=== PATIENT | male | born 1955 | race Caucasian/White ===

== ENCOUNTER → 2021-07-08 03:34 | Outpatient (CLI) | payer MEDICARE, SELFPAY ==
[2021-07-08 19:12] LABS: SARS-CoV-2 RNA PCR Negative
== END ==
PROVIDERS: PCP Family Medicine; Visit Provider Internal Medicine Gastroenterology
DX: Z01.812 Encounter for preprocedural laboratory examination (principal); Z20.822 Contact with and (suspected) exposure to COVID-19
CPT/HCPCS: C9803; U0003; U0005

== ENCOUNTER 2021-07-11 00:37 | Day surgery (SDC) | payer MEDICARE, SELFPAY ==
[2021-06-30 14:10] VITALS: BMI 28.5
[2021-07-11 06:25] VITALS: BMI 28.8
[2021-07-11] MEDS: LACTATED RINGERS 1,000 ML 150 ML IV CONT (06:40)
--- NOTE | 2021-07-11 07:08 | WPDANESEPPF ---
Anes - Initial Pre Proc Eval Procedure: Operation Date: 07/11/21 07:30 Proposed Procedures p Screening Colonoscopy - Chivo Hanks MD Date/Time: 07/11/21 07:08 Surgeon: Chivo Hanks MD Pre Op Diagnosis: neoplasm screening Patient Data Age: 66 Gender: M Height: 1.8 m Weight: 93.7 kg Allergies Allergy/AdvReac Type Severity Reaction Status Date / Time No Known Allergies Allergy Mild Verified 07/11/21 06:22 Home Medications Medication Instructions Recorded Confirmed Type fluticasone propionate 50 2 spray NASAL DAILY #9.9 ml 06/27/19 07/01/21 Rx mcg/actuation nasal spray,suspension syringe (disposable) 3 mL #25 each 01/10/20 05/21/21 Rx aspirin 81 mg tablet,delayed 81 mg PO DAILY 04/18/20 07/01/21 History release melatonin 5 mg capsule 5 mg PO QPM PRN cap 04/19/20 07/01/21 History vitamin E (dl, acetate) 180 mg 450 mg PO DAILY 04/19/20 07/01/21 History (400 unit) capsule pravastatin 40 mg tablet 40 mg PO DAILY #90 tablet 02/15/21 07/01/21 Rx clonazepam 1 mg tablet 1 mg PO DAILY PRN #90 tablet 04/22/21 07/01/21 Rx omega-3s 800 mg-dha 186.67 mg-epa 1 cap PO BID cap 04/22/21 07/01/21 History 560 mg-fish-vit D3 8.33 mcg capsule testosterone cypionate 200 mg/mL 200 mg IM .Every 3 weeks #6 ml 05/03/21 07/01/21 Rx intramuscular oil sildenafil (pulm.hypertension) 20 20 mg PO DAILY PRN #30 tablet 05/24/21 07/01/21 Rx mg tablet Patient hx anesthesia problems: none Family hx anesthesia problems: none Results Review: All pre-operative results and documents have been reviewed as part of the pre-operative evaluation. 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 Carotid bruit (~2016) Cervical spine disease (~2002) C5-6 Chronic fatigue Chronic rhinitis (~2017) Degenerative joint disease of cervical and lumbar spine Encounter for wellness examination Erectile dysfunction Hypercholesterolemia Hyperlipidemia Hyperlipidemia LDL goal <100 Hypogonadism Neck pain Numbness of right hand (~12/10/18) Osteoarthritis, multiple sites Overweight (BMI 25.0-29.9) Plantar fasciitis (~2018) twice-right side Psoriasis, unspecified RLS (restless legs syndrome) Rotator cuff injury Testicular hypofunction Unilateral hearing loss Vitamin B12 deficiency Surgical History Surgical History History of lumbar surgery lumbar disc L2-3 Family History Family History Father Family history of congenital heart disease Family history of arthritis Grandparent Family history of rheumatoid arthritis Family history of malignant neoplasm of cervix Mother Family history of lung cancer Family history of malignant neoplasm of brain Social History Social History Smoking status: Never smoker Second hand tobacco smoke exposure: No Alcohol intake: current Drinks per week: 1 Alcohol use details: consumes beer occasionally Substance use: never Substance use type: does not use Living arrangements: with family Gender identity (if verbalized by the patient): Male Sexual Orientation (if Verbalized by the Patient): Straight or Heterosexual Spiritual care concerns: No Anes - Eval Final PreProcedure Day of Procedure 07/11/21 07:08 Patient weight: overweight Heart: regular rate and rhythm Lungs: clear to auscultation Airway: Mallampati scale class II Neurological: alert and oriented Last oral intake: >/= 8 hours ASA classification: II Emergent: no Anesthetic plan: proceed Anesthesia type and monitoring: general GIVS and standard monitoring Results Review: All pre-operative results and documents have been reviewed as part of the pre-operative evaluation. Informed Consent: The patient
--- NOTE | 2021-07-11 07:29 | WPDGICN ---
Assessment and Plan Assessment and plan (1) Encounter for screening colonoscopy: Code(s): Z12.11 - Encounter for screening for malignant neoplasm of colon Status: Acute Assessment and Plan: Patient presents for screening colonoscopy. Has been 10 years since last exam. Colonoscopy will be performed at this time. (2) Rectal bleeding: Code(s): K62.5 - Hemorrhage of anus and rectum Status: Acute Assessment and Plan: Patient is notice some bright red blood per rectum with wiping. Most suspicious for hemorrhoids. Plan to assess this at time of colonoscopy. High-fiber diet advised. Further recommendations will be discussed at time of endoscopy. GI Consult Note Consult date/time: 07/11/21 07:29 HPI: Taj Short is a 66 year old malePresents for screening colonoscopy. Is been more than 10 years since last exam. Patient reports that he has occasional bright red blood per rectum with wiping. This been more noticeable over last several years. He does have a mild discomfort on the left side of his perianal skin. He has had occasional skin fissures in this area and complains of anal skin tags. He states he does get relief with hemorrhoidal creams. His bowel habits are reported to be normal. Family history is noncontributory. Patient presents today for colonoscopy also to assess for his perianal discomfort. 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 Carotid bruit (~2016) Cervical spine disease (~2002) C5-6 Chronic fatigue Chronic rhinitis (~2017) Degenerative joint disease of cervical and lumbar spine Encounter for wellness examination Erectile dysfunction Hypercholesterolemia Hyperlipidemia Hyperlipidemia LDL goal <100 Hypogonadism Neck pain Numbness of right hand (~12/10/18) Osteoarthritis, multiple sites Overweight (BMI 25.0-29.9) Plantar fasciitis (~2018) twice-right side Psoriasis, unspecified RLS (restless legs syndrome) Rotator cuff injury Testicular hypofunction Unilateral hearing loss Vitamin B12 deficiency Surgical History Surgical History History of lumbar surgery lumbar disc L2-3 Family History Family History Father Family history of congenital heart disease Family history of arthritis Grandparent Family history of rheumatoid arthritis Family history of malignant neoplasm of cervix Mother Family history of lung cancer Family history of malignant neoplasm of brain Social History Social History Smoking status: Never smoker Second hand tobacco smoke exposure: No Alcohol intake: current Drinks per week: 1 Alcohol use details: consumes beer occasionally Substance use: never Substance use type: does not use Living arrangements: with family Gender identity (if verbalized by the patient): Male Sexual Orientation (if Verbalized by the Patient): Straight or Heterosexual Spiritual care concerns: No Meds Home Medications and Allergies Home Medications Medication Instructions Recorded Confirmed Type fluticasone propionate 50 2 spray NASAL DAILY #9.9 ml 06/27/19 07/01/21 Rx mcg/actuation nasal spray,suspension syringe (disposable) 3 mL #25 each 01/10/20 05/21/21 Rx aspirin 81 mg tablet,delayed 81 mg PO DAILY 04/18/20 07/01/21 History release melatonin 5 mg capsule 5 mg PO QPM PRN cap 04/19/20 07/01/21 History vitamin E (dl, acetate) 180 mg 450 mg PO DAILY 04/19/20 07/01/21 History (400 unit) capsule pravastatin 40 mg tablet 40 mg PO DAILY #90 tablet 02/15/21 07/01/21 Rx clonazepam 1 mg tablet 1 mg PO DA
[2021-07-11 07:49] VITALS: BP 110/71; PULSE 69; RESP 18; O2SAT 98
[2021-07-11 07:59] VITALS: BP 122/84; PULSE 62; RESP 20; O2SAT 98
[2021-07-11 08:09] VITALS: BP 129/80; PULSE 64; RESP 17; O2SAT 100
== END 2021-07-11 08:23 | disposition home or self-care (01) ==
PROVIDERS: PCP Family Medicine; Visit Provider Internal Medicine Gastroenterology
PROC: 0DJD8ZZ Inspection of Lower Intestinal Tract, Via Natural or Artificial Opening Endoscopic (ICD-10-PCS; CPT 45378; principal; 2021-07-11 07:30)
DX: Z12.11 Encounter for screening for malignant neoplasm of colon (principal); K62.5 Hemorrhage of anus and rectum; F41.9 Anxiety disorder, unspecified; R09.89 Other specified symptoms and signs involving the circulatory and respiratory systems; R53.82 Chronic fatigue, unspecified; M47.812 Spondylosis without myelopathy or radiculopathy, cervical region; M47.816 Spondylosis without myelopathy or radiculopathy, lumbar region; E78.00 Pure hypercholesterolemia, unspecified; E78.5 Hyperlipidemia, unspecified; L40.9 Psoriasis, unspecified; G25.81 Restless legs syndrome; E53.8 Deficiency of other specified B group vitamins; K64.8 Other hemorrhoids; K64.4 Residual hemorrhoidal skin tags
CPT/HCPCS: G0121; J2001; J2704; J7120

== ENCOUNTER → 2022-05-02 12:48 | Outpatient (CLI) | payer MEDICARE, SELFPAY ==
--- NOTE | ~2022-05-02 | US_ITS ---
EXAMINATION: US renal BI DATE: 05/02/2022 13:10 INDICATION: Chronic kidney disease TECHNIQUE: Multiple ultrasound grayscale images of the kidneys were obtained. COMPARISON: None. FINDINGS: The right kidney measures 10.3 x 6.1 x 5.1 cm. The left kidney measures 11.0 x 6.0 x 5.6 cm. The kidn eys demonstrate normal echogenicity. There is no hydronephrosis in either kidney. No stones identifi ed. The bladder is normal. IMPRESSION: 1. Normal kidneys without hydronephrosis. Reviewed, dictated and finalized at location A.
== END ==
PROVIDERS: PCP Family Medicine; Visit Provider Family Medicine
DX: N18.30 Chronic kidney disease, stage 3 unspecified (principal)
CPT/HCPCS: 76775